=== PATIENT | female | born 1980 | race American Indian/Alaskan Native ===

== ENCOUNTER 2017-07-18 19:44 | Emergency (ER) | payer OTHER, BC ==
[2017-07-18 19:45] VITALS: BMI 31.0
[2017-07-18 19:53] VITALS: BP 122/70; PULSE 70; RESP 16; TEMP 99; O2SAT 100
[2017-07-18] MEDS ORDERED: Naproxen 550 mg Tab PO STA (20:29)
--- NOTE | 2017-07-18 21:05 | ED PDOC ---
Arrival/HPI <Mario Alberto Soto - Last Filed: 07/18/17 22:52> - General Historian: Patient <Trina Ohara PA-C - Last Filed: 07/19/17 00:06> - General Chief Complaint: Trauma Time Seen by Provider: 07/18/17 20:13 - History of Present Illness Narrative History of Present Illness (Text): 07/18/17 21:02 Patient with past medical history of migraine headaches, reports 2 week history of constant throbbing headache to the left side of her forehead. Patient states that she has been taking her migraine medication with no improvement of her headache and therefore assumes that she may be having the headache from a possible head injury, however she is unsure. When patient was asked if she sustained any injury or trauma to her head, she is unsure and thinks it is a possibility as she has no other explanation of why she has the headache. Otherwise: (-) loss of consciousness, (-) nausea, (-) vomiting, (-) severe headache, (-) other injury, (-) neck pain, (-) subjective neurologic deficit, (- ) anticoagulants, (-) fever, (-) URI symptoms. Has no history of prior significant head injury. PMD Brock (Trina Ohara PA-C) Past Medical History - Provider Review Nursing Documentation Reviewed: Yes - Infectious Disease Hx of Infectious Diseases: None - Tetanus Immunization Tetanus Immunization: Unknown - Reproductive Menopause: No - Past Medical History Past Medical History: No Previous - Cardiac Hx Cardiac Disorders: Yes Hx Heart Murmur: Yes ("BENIGN HEART MURMUR") - Pulmonary Hx Respiratory Disorders: Yes Hx Emphysema: Yes - Neurological Hx Neurological Disorder: Yes Hx Migraine: Yes - HEENT Hx HEENT Disorder: No - Renal Hx Renal Disorder: No - Endocrine/Metabolic Hx Endocrine Disorders: No - Hematological/Oncological Hx Blood Disorders: No - Integumentary Hx Dermatological Disorder: No - Musculoskeletal/Rheumatological Hx Musculoskeletal Disorders: Yes Other/Comment: HX: RIGHT FOOT BUNION - Gastrointestinal Hx Gastrointestinal Disorders: No - Genitourinary/Gynecological Hx Genitourinary Disorders: Yes Other/Comment: HX: DERMOID CYST LEFT OVARY - Psychiatric Hx Psychophysiologic Disorder: No - Past Surgical History Past Surgical History: No Previous - Surgical History Hx Orthopedic Surgery: Yes Other/Comment: HX: BUNIONECTOMY RIGHT FOOT. HX:ORAL [id number] ANESTHESIA - Anesthesia Hx Anesthesia: Yes Hx Anesthesia Reactions: No Hx Malignant Hyperthermia: No - Suicidal Assessment Feels Threatened In Home Enviroment: No <Trina Ohara PA-C - Last Filed: 07/19/17 00:06> Family/Social History - Physician Review Nursing Documentation Reviewed: Yes Family/Social History: Unknown Family HX (as the patient is adopted) Smoking Status: Never Smoked Hx Alcohol Use: No Hx Substance Use Treatment: No <Trina Ohara PA-C - Last Filed: 07/19/17 00:06> Allergies/Home Meds <Mario Alberto Soto - Last Filed: 07/18/17 22:52> <Trina Ohara PA-C - Last Filed: 07/19/17 00:06> Allergies/Adverse Reactions: Allergies shellfish derived Adverse Reaction (Verified 10/27/16 14:52) SHORTNESS OF BREATH Home Medications: Home Meds Medication Instructions Recorded Confirmed Albuterol HFA [Ventolin HFA 90 2 puff IH PRN PRN 04/13/17 07/18/17 mcg/actuation (8 g)] Atorvastatin [Lipitor] 10 mg PO HS 04/13/17 07/18/17 Diclofenac Potassium [Cambia] 1 packet PO PRN PRN 04/13/17 07/18/17 Ergocalciferol (Vitamin D2) 50,000 unit PO QWK 04/13/17 07/18/17 [Vitamin D2] Magnesium Oxide [Magnesium] 400 mg PO TID 04/13/17 07/18/17 Sumatriptan Succinate [Onzetra 11 mg NS PRN PRN 04/13/17 07/18/17 Xsail] Topiramate (Brand) [Topamax 50 mg PO DAILY 04/13/17 07/18/17 (Brand)] Albuterol HFA [Ventolin HFA 90 0.09 mg IH PRN PRN 07/18/17 07/18/17 mcg/actuation (8 g)] Review of Systems - Review of Systems Constitutional: Normal. absent: Fatigue, Weight Change, Fevers ENT: Normal. absent: Hearing Changes, Sore Throat, Rhinorrhea, Sinus Congestion Respiratory: Normal. absent: SOB, Cough, Sputum Cardiovascular: Normal. absent: Chest Pain, Palpitations, Edema Musculoskeletal: Normal. absent: Arthralgias, Back Pain, Neck Pain Skin: Normal. absent: Rash, Pruritis, Skin Lesions Neurological: Normal, Headache. absent: Dizziness, Focal Weakness <Trnia Ohara PA-C - Last Filed: 07/19/17 00:06> Physical Exam <Mario Alberto Soto - Last Filed: 07/18/17 22:52> <Trina Ohara PA-C - Last Filed: 07/19/17 00:06> - Physical Exam Narrative Physical Exam (Text): 07/18/17 21:06 GENERAL APPEARANCE: Patient is awake, alert, oriented x 3, in no acute distress. SKIN: Warm, dry; (-) cyanosis; (-) rash. HEAD: (-) scalp swelling or tenderness, (-) temporal artery tenderness. EYES: (-) conjunctival pallor, (-) scleral icterus. ENMT: (-) sinus tenderness; mucous membranes moist. NECK: (-) tenderness, (-) stiffness, (-) meningismus, (-) lymphadenopathy. CHEST AND RESPIRATORY: (-) rales, (-) rhonchi, (-) wheezes; breath sounds equal bilaterally. HEART AND CARDIOVASCULAR: (-) irregularity; (-) murmur, (-) gallop. ABDOMEN AND GI: Soft; (-) tenderness. EXTREMITIES: (-) deformity. NEURO AND PSYCH: Mental status as above. education managers: Pupils equal and reactive; EOMI; (-) facial asymmetry; tongue and uvula midline. Strength and DTRs symmetric. Babinski normal bilaterally. (Trina Ohara PA-C) Vital Signs Temp Pulse Resp BP Pulse Ox 07/18/17 19:49 99 F 70 16 122/70 100 Medical Decision Making <Mario Alberto Soto - Last Filed: 07/18/17 22:52> <Trina Ohara PA-C - Last Filed: 07/19/17 00:06> ED Course and Treatment: 07/18/17 21:06 36 yo F w/ past medical history of migraine headaches, reports 2 week history of constant throbbing headache to the left side of her forehead. [place]: [place] [facility] [place] - Tylenol po / reglan po 07/18/17 22:18 [facility] [place] (-[place] CT head : No acute intracranial abnormality On reevaluation, the patient is resting comfortably in bed in no acute distress , reports improvement of her headache. Patient remains awake, alert, oriented 3. Repeat neuro exam shows no acute focal findings. Advised to follow up with primary care physician and her neurologist in 1-2 days without fail. Advised to take medication as prescribed. Return to the emergency room at any time for any new or worsening symptoms. Patient states she fully agrees with and understands discharge instructions. States that she agrees with the plan and disposition. Verbalized and repeated discharge instructions and plan. I have given the patient opportunity to ask any additional questions. (Lev JEAN,Trina Govea) - RAD Interpretation Narrative RAD Interpretations (Text): 07/18/17 22:18 CT HEAD : FINDINGS: Brain: Ventricles are normal in size and configuration. There is no midline shift. There are no intraaxial or extra-axial mass lesions or areas of hemorrhage. There are no abnormal fluid collections. Arango-white differentiation is maintained. Ventricles: See above. Bones: Cranial vault is intact. Soft tissues: unremarkable Sinuses: There is no acute sinusitis. Ears and mastoids: Middle ears and mastoids are unremarkable Orbits: Orbital contents are unremarkable. IMPRESSION: No acute intracranial abnormality Dictated and Authenticated by: Marysol Ibrahim MD 07/18/2017 10:09 PM Eastern Time ([place] & [place]) (Lev JEAN,Trina Govea) Radiology Orders: 07/18/17 20:28 HEAD W/O CONTRAST [CT] Stat - Medication Orders Current Medication Orders: Discontinued Medications Acetaminophen (Tylenol 325mg Tab) 975 mg PO STAT STA Stop: 07/18/17 20:34 Last Admin: 07/18/17 21:03 Dose: 975 mg Metoclopramide HCl (Reglan) 10 mg PO STAT STA Stop: 07/18/17 20:30 Last Admin: 07/18/17 21:03 Dose: 10 mg - PA / SECOND VP HR ASSESSMENT / Resident Statement KARLO has reviewed & agrees with the documentation as recorded. KARLO has examined the patient and agrees with the treatment plan. <BrittanyMario Alberto - Last Filed: 07/18/17 22:52> - PA / SECOND VP HR ASSESSMENT / Resident Statement / has reviewed & agrees with the documentation as recorded. <Trina Ohara PA-C - Last Filed: 07/19/17 00:06> Disposition/Present on Arrival <BrittanyMario Alberto - Last Filed: 07/18/17 22:52> - Present on Arrival Any Indicators Present on Arrival: No History of DVT/PE: No History of Uncontrolled Diabetes: No Urinary Catheter: No History of Decub. Ulcer: No History Surgical Site Infection Following: None - Disposition Have Diagnosis and Disposition been Completed?: Yes Disposition Time: 22:15 Patient Plan: Discharge <Trina Ohara PA-C - Last Filed: 07/19/17 00:06> - Disposition Diagnosis: Headache Disposition: HOME/ ROUTINE Patient Problems: Current Active Problems Problem Status Onset Headache Acute Condition: IMPROVED Discharge Instructions (ExitCare): Acute Headache (ED) Print Language: SPANISH Additional Instructions: Thank you for letting us take care of you today. You were treated for headache. The emergency medical care you received today was directed at your acute symptoms. If you were prescribed any medication, please fill it and take as directed. It may take several days for your symptoms to resolve. Return to the Emergency Department if your symptoms worsen, do not improve, or if you have any other problems. Please contact your doctor in 2 days for re-evaluation and follow up. Bring any paperwork you were given at discharge with you along with any medications you are taking to your follow up visit. Our treatment cannot replace ongoing medical care by a primary care provider (PCP) outside of the emergency department. Thank you for allowing the [facility] team to be part of your care today. If you had a CT scan: A Radiologist will review the ED reading if any change in treatment is needed we will contact you. Prescriptions: Metoclopramide HCl [Reglan] 10 mg PO QID PRN #20 tablet PRN Reason: Headache Forms: [employer] (Czech)
--- NOTE | 2017-07-18 22:10 | CT ---
EXAM: CT Head Without Intravenous Contrast EXAM DATE/TIME: 07/18/2017 8:28 PM CLINICAL HISTORY: 36 years old, female; Pain and injury or trauma; Fall; Initial encounter; Sprain or strain; Headache TECHNIQUE: Axial computed tomography images of the head/brain without intravenous contrast. All CT scans at this facility use one or more dose reduction techniques, viz.: automated exposure control; ma/kV adjustment per patient size (including targeted exams where dose is matched to indication; i.e. head); or iterative reconstruction technique. COMPARISON: MR - BRAIN WITHOUT CONTRAST 10/01/2015 5:08:33 PM FINDINGS: Brain: Ventricles are normal in size and configuration. There is no midline shift. There are no intra-axial or extra-axial mass lesions or areas of hemorrhage. There are no abnormal fluid collections. Arango-white differentiation is maintained. Ventricles: See above. Bones: Cranial vault is intact. Soft tissues: unremarkable Sinuses: There is no acute sinusitis. Ears and mastoids: Middle ears and mastoids are unremarkable Orbits: Orbital contents are unremarkable. IMPRESSION: No acute intracranial abnormality
== END 2017-07-18 22:00 | disposition home or self-care (01) ==
LOC: ED 19:44
DX: R51 Headache (principal)

== ENCOUNTER 2018-01-06 17:11 | Emergency (ER) | payer OTHER, BC ==
[2018-01-06] MEDS ORDERED: Albuterol-Ipratrop 3 mg / 0.5 (3 ml) UD IH STA ×2 (17:47→18:44)
[2018-01-06 17:48] VITALS: BMI 28.1
[2018-01-06 18:37] LABS: BASO # 0.01 K/mm3 (0.0-2.0); BASO % 0.1 % (0.0-3.0); EOS % 0.6 % (1.5-5.0); GRAN # 4.19 (1.4-6.5); GRAN % 61.9 % (50.0-68.0); HEMOGLOBIN 12.8 g/dL (12.0-16.0); LYMPH # 1.9 (1.2-3.4); MEAN CELL VOLUME 96.1 fl (80.0-105.0); MEAN CORPUSCULAR HEMOGLOBIN 31.3 pg (25.0-35.0); MEAN CORPUSCULAR HGB CONC 32.6 g/dl (31.0-37.0); MEAN PLATELET VOLUME 9.5 fl (7.0-11.0); MONO # 0.6 (0.1-0.6); MONO % 9.4 % (1.0-6.0); RBC 4.09 10^6/uL (3.5-6.1); RED CELL DISTRIBUTION WIDTH 13.7 % (11.5-14.5); WHITE BLOOD COUNT 6.8 10^3/ul (4.5-11.0)
[2018-01-06 18:38] LABS: ARTERIAL BLOOD GAS HCO3 18.9 mmol/L (21-28); ARTERIAL BLOOD GAS HEMOGLOBIN 12.8 g/dL (11.7-17.4); ARTERIAL BLOOD GAS O2 CAPACITY 17.7 mL/dl (16-24); ARTERIAL BLOOD GAS O2 CONTENT 17.6 ML/dl (15-23); ARTERIAL BLOOD GAS O2 SAT 99.6 % (95-98); ARTERIAL BLOOD GAS PCO2 26 mm/Hg (35-45); ARTERIAL BLOOD GAS PH 7.47 (7.35-7.45); ARTERIAL BLOOD GAS TCO2 19.7 mmol.L (22-28)
[2018-01-06 18:42] LABS: URINE BILIRUBIN NEGATIVE (NEGATIVE); URINE BLOOD NEGATIVE (NEGATIVE); URINE GLUCOSE (UA) NEGATIVE (NEGATIVE); URINE LEUKOCYTE ESTERASE NEGATIVE Leu/uL (NEGATIVE); URINE NITRATE NEGATIVE (NEGATIVE); URINE PROTEIN NEGATIVE mg/dL (<30 mg/dL); URINE UROBILINOGEN 0.2 E.U./dL (<1 E.U./dL)
--- NOTE | 2018-01-06 18:42 | ED PDOC ---
Arrival/HPI - General Chief Complaint: Shortness Of Breath Time Seen by Provider: 01/06/18 17:23 Historian: Patient - History of Present Illness Narrative History of Present Illness (Text): 01/06/18 18:38 37yo female with PMHx of Migraine headache and Emphysema referred to ED by Dr. Gutiérrez for SOB and chest pressure x 5days. Also complain of cough and nausea. Notes previous history of these same symptoms, but it usually resolve within a day. 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 states her symptoms started after singing. Notes that she used her inhalers without relieve. Saw her PMD today and was referred to the ED. She denies fever, chills, sore throat, dizziness, diaphoresis, recent travel, recent surgery, calf pain, OCP use. Past Medical History - Provider Review Nursing Documentation Reviewed: Yes - Infectious Disease Hx of Infectious Diseases: None - Tetanus Immunization Tetanus Immunization: Unknown - Past Medical History Past Medical History: No Previous - Cardiac Hx Cardiac Disorders: Yes Hx Heart Murmur: Yes ("BENIGN HEART MURMUR") - Pulmonary Hx Respiratory Disorders: Yes Hx Emphysema: Yes - Neurological Hx Neurological Disorder: Yes Hx Migraine: Yes - HEENT Hx HEENT Disorder: No - Renal Hx Renal Disorder: No - Endocrine/Metabolic Hx Endocrine Disorders: No - Hematological/Oncological Hx Blood Disorders: No - Integumentary Hx Dermatological Disorder: No - Musculoskeletal/Rheumatological Hx Musculoskeletal Disorders: Yes Other/Comment: HX: RIGHT FOOT BUNION - Gastrointestinal Hx Gastrointestinal Disorders: No - Genitourinary/Gynecological Hx Genitourinary Disorders: Yes Other/Comment: HX: DERMOID CYST LEFT OVARY - Psychiatric Hx Psychophysiologic Disorder: No Hx Substance Use: No - Past Surgical History Past Surgical History: No Previous - Surgical History Hx Orthopedic Surgery: Yes Other/Comment: HX: BUNIONECTOMY RIGHT FOOT. HX:ORAL [id number] ANESTHESIA - Anesthesia Hx Anesthesia: Yes Hx Anesthesia Reactions: No Hx Malignant Hyperthermia: No - Suicidal Assessment Feels Threatened In Home Enviroment: No Family/Social History - Physician Review Nursing Documentation Reviewed: Yes Family/Social History: Unknown Family HX Smoking Status: Never Smoked Hx Alcohol Use: No Hx Substance Use: No Hx Substance Use Treatment: No Allergies/Home Meds Allergies/Adverse Reactions: Allergies shellfish derived Adverse Reaction (Verified 01/06/18 17:25) SHORTNESS OF BREATH Home Medications: Home Meds Medication Instructions Recorded Confirmed Albuterol HFA [Ventolin HFA 90 2 puff IH PRN PRN 04/13/17 07/18/17 mcg/actuation (8 g)] Atorvastatin [Lipitor] 10 mg PO HS 04/13/17 07/18/17 Diclofenac Potassium [Cambia] 1 packet PO PRN PRN 04/13/17 07/18/17 Ergocalciferol (Vitamin D2) 50,000 unit PO QWK 04/13/17 07/18/17 [Vitamin D2] Magnesium Oxide [Magnesium] 400 mg PO TID 04/13/17 07/18/17 Sumatriptan Succinate [Onzetra 11 mg NS PRN PRN 04/13/17 07/18/17 Xsail] Topiramate (Brand) [Topamax 50 mg PO DAILY 04/13/17 07/18/17 (Brand)] Albuterol HFA [Ventolin HFA 90 0.09 mg IH PRN PRN 07/18/17 07/18/17 mcg/actuation (8 g)] Review of Systems - Physician Review All systems were reviewed & negative as marked: Yes - Review of Systems Constitutional: Normal Eyes: Normal ENT: Normal Respiratory: SOB, Cough. absent: Sputum, Wheezing Cardiovascular: Chest Pain. absent: Palpitations, Edema, Calf Pain Gastrointestinal: Normal Genitourinary Female: Normal Musculoskeletal: Normal Skin: Normal Neurological: Normal Endocrine: Normal Hemo/Lymphatic: Normal Psychiatric: Normal Physical Exam Vital Signs Reviewed: Yes Vital Signs Temp Pulse Resp BP Pulse Ox 01/06/18 20:20 78 18 128/70 100 01/06/18 19:01 98.5 F 79 16 122/69 100 01/06/18 18:00 17 99 01/06/18 17:25 98.4 F 71 18 141/94 H 100 Temperature: Afebrile Blood Pressure: Normal Pulse: Regular Respiratory Rate: Normal Appearance: Positive for: Well-Appearing, Non-Toxic, Comfortable Pain Distress: None Mental Status: Positive for: Alert and Oriented X 3 - Systems Exam Head: Present: Atraumatic, Normocephalic Pupils: Present: PERRL Extroacular Muscles: Present: EOMI Conjunctiva: Present: Normal Mouth: Present: Moist Mucous Membranes Neck: Present: Normal Range of Motion Respiratory/Chest: Present: Clear to Auscultation, Good Air Exchange. No: Respiratory Distress, Accessory Muscle Use, Wheezes, Decreased Breath Sounds, Rales, Retracting, Rhonchi Cardiovascular: Present: Regular Rate and Rhythm, Normal S1, S2. No: Murmurs Abdomen: Present: Normal Bowel Sounds. No: Tenderness, Distention, Peritoneal Signs Back: Present: Normal Inspection Upper Extremity: Present: Normal Inspection. No: Cyanosis, Edema Lower Extremity: Present: Normal Inspection. No: Edema Neurological: Present: GCS=15, CN II-XII Intact, Speech Normal Skin: Present: Warm, Dry, Normal Color. No: Rashes Psychiatric: Present: Alert, Oriented x 3, Normal Insight, Normal Concentration Medical Decision Making ED Course and Treatment: 01/06/18 20:01 Pt in ED for stated. She was hemodynamically stable in ED. Her lung was CTA b/ l. she was talking in full sentence and ambulatory without distress. She states she used her inhaler prior to seeing her PMD Lab was unremarkable CXR NAD On re evaluation pt states she feels fine. Her lung remain CTA b/l 01/06/18 20:28 case was MILTON Gutiérrez. He recommends that pt be DC home and advised to f/u with his office next week. Result and plan was DW the pt and she expressed understanding of the instructions. - Lab Interpretations Lab Results: 01/06/18 17:50 01/06/18 17:50 Lab Results 01/06/18 18:35: pCO2 26 L, pO2 104.0 H, HCO3 18.9 L, ABG pH 7.47 H, ABG Total CO2 19.7 L, ABG O2 Saturation 99.6 H, ABG O2 Content 17.6, ABG Base Excess -3.3 L, ABG Hemoglobin 12.8, ABG Carboxyhemoglobin 1.3, POC ABG HHb (Measured) 0.4, ABG Methemoglobin 1.0, ABG O2 Capacity 17.7, Hgb O2 Saturation 97.3, FiO2 21.0 01/06/18 18:29: Magnesium 2.1 01/06/18 17:50: Sodium 140, Potassium 3.6, Chloride 109 H, Carbon Dioxide 22, Anion Gap 13, BUN 13, Creatinine 0.9, Est GFR ( Amer) > 60, Est GFR (Non- Af Amer) > 60, Random Glucose 95, Calcium 9.4, Total Bilirubin 0.4, AST 18, ALT 23, Alkaline Phosphatase 55, Lactate Dehydrogenase 445, Total Creatine Kinase 124, Troponin I < 0.01 D, NT-Pro-B Natriuret Pep 11.5, Total Protein 7.3, Albumin 3.9, Globulin 3.4, Albumin/Globulin Ratio 1.2 01/06/18 17:50: Urine Color Yellow, Urine Appearance Clear, Urine pH 6.0, Ur Specific Cornelia 1.025, Urine Protein Negative, Urine Glucose (UA) Negative, Urine Ketones Negative, Urine Blood Negative, Urine Nitrate Negative, Urine Bilirubin Negative, Urine Urobilinogen 0.2, Ur Leukocyte Esterase Negative 01/06/18 17:50: PT 11.9, INR 1.04, APTT 35.4, D-Dimer, Quantitative < 200 01/06/18 17:50: WBC 6.8 D, RBC 4.09, Hgb 12.8, Hct 39.3, MCV 96.1, MCH 31.3, MCHC 32.6, RDW 13.7, Plt Count 195, MPV 9.5, Gran % 61.9, Lymph % (Auto) 28.0, [place] % (Auto) 9.4 H, Eos % (Auto) 0.6 L, Baso % (Auto) 0.1, Gran # 4.19, Lymph # (Auto) 1.9, [place] # (Auto) 0.6, Eos # (Auto) 0.0, Baso # (Auto) 0.01 01/06/18 17:39: Urine Opiates Screen Negative, Urine Methadone Screen Negative, Ur Barbiturates Screen Negative, Ur Phencyclidine Scrn Negative, Ur Amphetamines Screen Negative, U Benzodiazepines Scrn Negative, U Oth Cocaine Metabols Negative, U Cannabinoids Screen Negative - RAD Interpretation Radiology Orders: 01/06/18 17:47 CHEST PORTABLE [RAD] Stat - Medication Orders Current Medication Orders: Discontinued Medications Albuterol/Ipratropium (Duoneb 3 Mg/0.5 Mg (3 Ml) Ud) 3 ml IH STAT STA Stop: 01/06/18 17:48 Last Admin: 01/06/18 18:11 Dose: 3 ml Albuterol/Ipratropium (Duoneb 3 Mg/0.5 Mg (3 Ml) Ud) 3 ml IH STAT STA Stop: 01/06/18 18:45 Last Admin: 01/06/18 18:58 Dose: 3 ml Methylprednisolone (Solu-Medrol) 125 mg IVP STAT STA Stop: 01/06/18 18:00 Last Admin: 01/06/18 18:11 Dose: 125 mg IVP Administration Document 01/06/18 18:11 [facility] [place] (Rec: 01/06/18 18:11 [facility] [id number]) Charges for Administration # of IVP Administrations 1 Potassium Chloride (K-Dur 20 Meq Er Tab) 20 meq PO STAT STA Stop: 01/06/18 20:08 Last Admin: 01/06/18 20:16 Dose: 20 meq Disposition/Present on Arrival - Present on Arrival Any Indicators Present on Arrival: No History of DVT/PE: No History of Uncontrolled Diabetes: No Urinary Catheter: No History of Decub. Ulcer: No History Surgical Site Infection Following: None - Disposition Have Diagnosis and Disposition been Completed?: Yes Diagnosis: Emphysema of lung Disposition: HOME/ ROUTINE Disposition Time: 21:00 Patient Plan: Discharge Patient Problems: Current Active Problems Problem Status Onset Emphysema of lung Acute Condition: STABLE Discharge Instructions (ExitCare): COPD Including Emphysema (DC) Additional Instructions: Follow up with your doctor next week Return to ED for any new or worsening symptoms Referrals: Eugene Gutiérrez MD [Primary Care Provider] - Follow up with primary Forms: [employer] (Ugandan)
[2018-01-06 18:43] LABS: URINE APPEARANCE CLEAR (CLEAR); URINE COLOR YELLOW (YELLOW)
[2018-01-06 18:48] LABS: ALB/GLOB RATIO 1.2 (1.1-1.8); ALBUMIN 3.9 g/dL (3.0-4.8); ALT/SGPT 23 U/L (7-56); AST/SGOT 18 U/L (14-36); BLOOD UREA NITROGEN 13 mg/dL (7-21); CALCIUM 9.4 mg/dL (8.4-10.5); GFR AFRICAN-AMERICAN > 60; GFR NON-AFRICAN AMERICAN > 60
[2018-01-06 18:54] LABS: INR 1.04 (0.93-1.08); PARTIAL THROMBOPLASTIN TIME 35.4 Seconds (25.1-36.5); PROTHROMBIN TIME 11.9 SECONDS (9.4-12.5)
[2018-01-06 18:55] LABS: D DIMER < 200 ng/mL (0-243)
[2018-01-06 18:59] LABS: B-TYPE NATRIURETIC PEPTIDE 11.5 pg/mL (0-450); TROPONIN I < 0.01 ng/mL
[2018-01-06 19:02] VITALS: TEMP 98.5; O2SAT 100
[2018-01-06 20:02] LABS: BARBITURATES, UR NEGATIVE (NEGATIVE); BENZODIAZEPINES, UR NEGATIVE (NEGATIVE); OPIATES, UR NEGATIVE (NEGATIVE); PHENCYCLIDINE, UR NEGATIVE (NEGATIVE)
[2018-01-06] MEDS ORDERED: Potassium Chloride 20 mEq ER Tab PO STA (20:07)
[2018-01-06 21:39] VITALS: RESP 16
[2018-01-06 21:40] VITALS: BP 123/70; PULSE 70
--- NOTE | 2018-01-07 08:06 | RAD ---
HISTORY: Shortness of breath COMPARISON: 03/30/2017. FINDINGS: LUNGS: The lungs are well inflated and clear. PLEURA: No significant pleural effusion identified, no pneumothorax apparent. CARDIOVASCULAR: Normal. OSSEOUS STRUCTURES: No significant abnormalities. VISUALIZED UPPER ABDOMEN: Normal. OTHER FINDINGS: None. IMPRESSION: No active pulmonary disease.
--- NOTE | 2018-01-07 10:11 | CARD ---
APPROVED REPORT EKG Measurement Heart [id number] <Conclusion> Normal sinus rhythm rSr Pattern V1.
== END 2018-01-06 21:39 | disposition home or self-care (01) ==
LOC: ED 17:11
DX: J43.9 Emphysema, unspecified (principal)
CPT/HCPCS: 71045; 80053; 80324; 80345; 80346; 80349; 80353; 80358; 80361; 81003; 82550; 82803; 83615; 83735; 83880; 83992; 84484; 85025; 85378; 85610; 85730; 87040; 93005; 96374; 99284; J2930

== ENCOUNTER 2019-01-22 16:45 | Emergency (ER) | payer OTHER, BC ==
[2019-01-22 16:45] VITALS: BMI 31.0
[2019-01-22] MEDS ORDERED: DiphenhydrAMINE 12.5 mg/5 ml LIQ UD (5 ml) PO STA (17:18)
[2019-01-22 17:58] LABS: URINE BILIRUBIN NEGATIVE (NEGATIVE); URINE BLOOD TRACE-INTACT (NEGATIVE); URINE GLUCOSE (UA) NEGATIVE (NEGATIVE); URINE LEUKOCYTE ESTERASE NEGATIVE Leu/uL (NEGATIVE); URINE PROTEIN NEGATIVE mg/dL (<30 mg/dL); URINE UROBILINOGEN 0.2 E.U./dL (<1 E.U./dL)
[2019-01-22 18:02] LABS: URINE APPEARANCE CLEAR (CLEAR); URINE COLOR YELLOW (YELLOW)
--- NOTE | 2019-01-22 18:15 | ED PDOC ---
Arrival/HPI - General Historian: Patient - History of Present Illness Narrative History of Present Illness (Text): 01/22/19 18:03 38 y/o female with PMH of migraines presents to the ED c/o intermittent lightheadedness and headache s/p injury 3 days ago. Pt stood up under a metal shelf and hit her head. No LOC. Headache is isolated to the top of her head, described as dull. Has been taking her migraine medication for the pain without relief, cannot remember the name of the medication. Denies fever, chills, vision changes, vertigo, nausea, vomiting, abdominal pain, numbness, weakness, paresthesias, urinary symptoms, back pain, neck pain, photophobia, phonophobia, chest pain, SOB, or any other associated symptoms. <Snow Bruce - Last Filed: 01/22/19 19:15> <Chris Senior - Last Filed: 01/23/19 07:16> - General Chief Complaint: Headache Time Seen by Provider: 01/22/19 16:46 Past Medical History - Infectious Disease Hx of Infectious Diseases: None - Tetanus Immunization Tetanus Immunization: Unknown - Reproductive Menopause: No - Past Medical History Past Medical History: No Previous - Cardiac Hx Cardiac Disorders: Yes Hx Heart Murmur: Yes ("BENIGN HEART MURMUR") - Pulmonary Hx Respiratory Disorders: Yes Hx Emphysema: Yes - Neurological Hx Neurological Disorder: Yes Hx Migraine: Yes - HEENT Hx HEENT Disorder: No - Renal Hx Renal Disorder: No - Endocrine/Metabolic Hx Endocrine Disorders: No - Hematological/Oncological Hx Blood Disorders: No - Integumentary Hx Dermatological Disorder: No - Musculoskeletal/Rheumatological Hx Musculoskeletal Disorders: Yes Other/Comment: HX: RIGHT FOOT BUNION - Gastrointestinal Hx Gastrointestinal Disorders: No - Genitourinary/Gynecological Hx Genitourinary Disorders: Yes Other/Comment: HX: DERMOID CYST LEFT OVARY - Psychiatric Hx Psychophysiologic Disorder: No Hx Substance Use: No - Past Surgical History Past Surgical History: No Previous - Surgical History Hx Orthopedic Surgery: Yes Other/Comment: HX: BUNIONECTOMY RIGHT FOOT. HX:ORAL [id number] ANESTHESIA - Anesthesia Hx Anesthesia: Yes Hx Anesthesia Reactions: No Hx Malignant Hyperthermia: No - Suicidal Assessment Feels Threatened In Home Enviroment: No <Snow Bruce - Last Filed: 01/22/19 19:15> Family/Social History - Physician Review Nursing Documentation Reviewed: Yes Family/Social History: No Known Family HX Smoking Status: Never Smoked Hx Alcohol Use: No Hx Substance Use: No Hx Substance Use Treatment: No <Snow Bruce - Last Filed: 01/22/19 19:15> Allergies/Home Meds <Snow Bruce - Last Filed: 01/22/19 19:15> <Chris Senior - Last Filed: 01/23/19 07:16> Allergies/Adverse Reactions: Allergies shellfish derived Adverse Reaction (Verified 01/06/18 17:25) SHORTNESS OF BREATH Home Medications: Home Meds Medication Instructions Recorded Confirmed Albuterol HFA [Ventolin HFA 90 2 puff IH PRN PRN 04/13/17 07/18/17 mcg/actuation (8 g)] Atorvastatin [Lipitor] 10 mg PO HS 04/13/17 07/18/17 Albuterol HFA [Ventolin HFA 90 0.09 mg IH PRN PRN 07/18/17 01/22/19 mcg/actuation (8 g)] Review of Systems - Review of Systems Constitutional: Normal. absent: Fatigue, Fevers Eyes: Normal. absent: Vision Changes, Photophobia, Eye Pain ENT: Normal. absent: Sore Throat, Sinus Congestion Respiratory: Normal. absent: SOB, Cough Cardiovascular: Normal. absent: Chest Pain, Palpitations Gastrointestinal: Normal. absent: Abdominal Pain, Nausea, Vomiting Genitourinary Female: Normal. absent: Dysuria, Frequency Musculoskeletal: Normal. absent: Arthralgias, Back Pain, Neck Pain Skin: Normal. absent: Rash Neurological: Headache, Dizziness. absent: Focal Weakness, Gait Changes, Speech Changes, Disequilibrium Endocrine: Normal Hemo/Lymphatic: Normal Psychiatric: Normal <Snow Bruce - Last Filed: 01/22/19 19:15> Physical Exam Vital Signs Reviewed: Yes Vital Signs Temp Pulse Resp BP Pulse Ox 01/22/19 17:00 98.8 F 60 18 147/80 99 Temperature: Afebrile Blood Pressure: Normal Pulse: Regular Respiratory Rate: Normal Appearance: Positive for: Well-Appearing, Non-Toxic, Comfortable Pain Distress: None Mental Status: Positive for: Alert and Oriented X 3 - Systems Exam Head: Present: Atraumatic, Normocephalic Pupils: Present: PERRL Extroacular Muscles: Present: EOMI Conjunctiva: Present: Normal Ears: Present: Normal, NORMAL TM, Normal Canal. No: Other (no hemotympanum) Mouth: Present: Moist Mucous Membranes Neck: Present: Normal Range of Motion. No: Meningeal Signs, MIDLINE TENDERNESS, Paraspinal Tenderness Respiratory/Chest: Present: Clear to Auscultation, Good Air Exchange. No: Respiratory Distress, Accessory Muscle Use Cardiovascular: Present: Regular Rate and Rhythm, Normal S1, S2, Peripheal Pulses Present Abdomen: Present: Normal Bowel Sounds. No: Tenderness, Distention, Peritoneal Signs, Rebound, Guarding Back: Present: Normal Inspection. No: CVA Tenderness, Midline Tenderness, Paraspinal Tenderness Upper Extremity: Present: Normal Inspection, Normal ROM, NORMAL PULSES, Neurovascularly Intact, Capillary Refill < 2s. No: Cyanosis, Edema, Temperature Abnormalties Lower Extremity: Present: Normal Inspection, NORMAL PULSES, Normal ROM, Neurovascularly Intact, Capillary Refill < 2 s. No: Edema, Temperature Abnormalties Neurological: Present: GCS=15, CN II-XII Intact, Speech Normal, Motor Func Grossly Intact, Normal Sensory Function, Normal Cerebellar Funct, Gait Normal, Memory Normal Skin: Present: Warm, Dry, Normal Color. No: Rashes Lymphatic: No: Cervical Adenopathy Psychiatric: Present: Alert, Oriented x 3, Normal Insight, Normal Concentration, Normal Affect, Normal Mood <Snow Bruce - Last Filed: 01/22/19 19:15> Vital Signs Temp Pulse Resp BP Pulse Ox 01/22/19 19:16 98.2 F 62 16 127/88 99 01/22/19 19:09 64 18 125/82 100 01/22/19 17:45 60 18 127/90 99 01/22/19 17:00 98.8 F 60 18 147/80 99 <Chris Senior - Last Filed: 01/23/19 07:16> Medical Decision Making ED Course and Treatment: Initial Plan: * Head CT * UA * POC urine preg * Reglan * Benadryl * Tylenol * Reassess and Disposition POC urine preg negative 18:59 Pt reports resolution of headache with medication. CT head negative for acute pathology UA unremarkable Diagnostic testing results and plan of care discussed with patient. Strict instructions given regarding prescription use, importance of followup, and signs/symptoms to return to ER including vision changes, numbness, weakness, paresthesias, imbalance or any other new/worsening symptoms. Pt verbalized understanding of discussion. Patient is A&Ox3, ambulating with steady gait, with vital signs stable for discharge. - Lab Interpretations Lab Results: Urine Color Yellow (YELLOW) 01/22/19 17:30 Urine Appearance Clear (CLEAR) 01/22/19 17:30 Urine pH 6.0 (4.7-8.0) 01/22/19 17:30 Ur Specific Fletcher >= 1.030 (1.005-1.035) 01/22/19 17:30 Urine Protein Negative mg/dL (<30 mg/dL) 01/22/19 17:30 Urine Glucose (UA) Negative mg/dL (NEGATIVE) 01/22/19 17:30 Urine Ketones Negative mg/dL (NEGATIVE) 01/22/19 17:30 Urine Blood Trace-intact (NEGATIVE) H 01/22/19 17:30 Urine Nitrate Negative (NEGATIVE) 01/22/19 17:30 Urine Bilirubin Negative (NEGATIVE) 01/22/19 17:30 Urine Urobilinogen 0.2 E.U./dL (<1 E.U./dL) 01/22/19 17:30 Ur Leukocyte Esterase Negative Rita/uL (NEGATIVE) 01/22/19 17:30 I have reviewed the lab results: Yes - RAD Interpretation Narrative RAD Interpretations (Text): 01/22/19 19:[address] IMPRESSION: No acute intracranial pathology Dictator: Siva Rich MD Radiology Orders: 01/22/19 17:18 HEAD W/O CONTRAST [CT] Stat - Medication Orders Current Medication Orders: Discontinued Medications Acetaminophen (Tylenol 325mg Tab) 975 mg PO STAT STA Stop: 01/22/19 17:19 Last Admin: 01/22/19 17:33 Dose: 975 mg MAR Pain/Vitals Document 01/22/19 17:33 MA (Rec: 01/22/19 17:33 [place] [facility] – [id number] Pain Reassessment Is This A Pain ReAssessment? Yes Sleep Is patient sleeping during reassessment? No Presence of Pain Presence of Pain Yes Pain Scale Used Protocol: PSCALES Pain Scale Used Numeric Location Pain Location Body Gas Main Fitter Helper Description Dull Throbbing Intensity 5 Scale Used Numeric Pain Behavior Grasping Site Rubbing Site Diphenhydramine HCl (Benadryl) 25 mg PO STAT STA Stop: 01/22/19 17:19 Last Admin: 01/22/19 17:34 Dose: 25 mg Metoclopramide HCl (Reglan) 10 mg PO STAT STA Stop: 01/22/19 17:19 Last Admin: 01/22/19 17:32 Dose: 10 mg <[email or web address] - Last Filed: 01/22/19 19:15> - Lab Interpretations Lab Results: Urine Color Yellow (YELLOW) 01/22/19 17:30 Urine Appearance Clear (CLEAR) 01/22/19 17:30 Urine pH 6.0 (4.7-8.0) 01/22/19 17:30 Ur Specific Fletcher >= 1.030 (1.005-1.035) 01/22/19 17:30 Urine Protein Negative mg/dL (<30 mg/dL) 01/22/19 17:30 Urine Glucose (UA) Negative mg/dL (NEGATIVE) 01/22/19 17:30 Urine Ketones Negative mg/dL (NEGATIVE) 01/22/19 17:30 Urine Blood Trace-intact (NEGATIVE) H 01/22/19 17:30 Urine Nitrate Negative (NEGATIVE) 01/22/19 17:30 Urine Bilirubin Negative (NEGATIVE) 01/22/19 17:30 Urine Urobilinogen 0.2 E.U./dL (<1 E.U./dL) 01/22/19 17:30 Ur Leukocyte Esterase Negative Rita/uL (NEGATIVE) 01/22/19 17:30 Urine RBC 1 - 3 /hpf (0-2) H 01/22/19 17:30 Urine WBC 0 - 2 /hpf (0-6) 01/22/19 17:30 Ur Epithelial Cells 3 - 4 /hpf (0-5) 01/22/19 17:30 - RAD Interpretation Radiology Orders: 01/22/19 17:18 HEAD W/O CONTRAST [CT] Stat - Medication Orders Current Medication Orders: Discontinued Medications Acetaminophen (Tylenol 325mg Tab) 975 mg PO STAT STA Stop: 01/22/19 17:19 Last Admin: 01/22/19 17:33 Dose: 975 mg MAR Pain/Vitals Document 01/22/19 17:33 MA (Rec: 01/22/19 17:33 MA [facility] – [id number]) Pain Reassessment Is This A Pain ReAssessment? Yes Sleep Is patient sleeping during reassessment? No Presence of Pain Presence of Pain Yes Pain Scale Used Protocol: PSCALES Pain Scale Used Numeric Location Pain Location Body Gas Main Fitter Helper Description Dull Throbbing Intensity 5 Scale Used Numeric Pain Behavior Grasping Site Rubbing Site Diphenhydramine HCl (Benadryl) 25 mg PO STAT STA Stop: 01/22/19 17:19 Last Admin: 01/22/19 17:34 Dose: 25 mg Metoclopramide HCl (Reglan) 10 mg PO STAT STA Stop: 01/22/19 17:19 Last Admin: 01/22/19 17:32 Dose: 10 mg <Chris Senior - Last Filed: 01/23/19 07:16> - PA / [employer] APPRENTICE / Resident Statement / has reviewed & agrees with the documentation as recorded. <Chris Senior - Last Filed: 01/23/19 07:16> Disposition/Present on Arrival - Present on Arrival Any Indicators Present on Arrival: No History of DVT/PE: No History of Uncontrolled Diabetes: No Urinary Catheter: No History of Decub. Ulcer: No History Surgical Site Infection Following: None - Disposition Have Diagnosis and Disposition been Completed?: Yes Disposition Time: 19:07 Patient Plan: Discharge <Snow Bruce - Last Filed: 01/22/19 19:15> <Chris Senior - Last Filed: 01/23/19 07:16> - Disposition Diagnosis: Closed head injury, Headache, Postconcussion syndrome Disposition: HOME/ ROUTINE Condition: IMPROVED Discharge Instructions (ExitCare): Postconcussion Syndrome (DC) Additional Instructions: Increase fluids Ibuprofen/tylenol for pain as needed Rest, no strenuous activity Followup with primary doctor within 2 days Return to ER with any new/worsening symptoms Referrals: Eugene Gutiérrez MD [Family Provider] - Follow up with primary Forms: [employer] [facility] (Sinhala), WORK NOTE
[2019-01-22 18:24] LABS: URINE WBC 0 - 2 /hpf (0-6)
[2019-01-22 19:17] VITALS: BP 127/88; PULSE 62; RESP 16; TEMP 98.2; O2SAT 99
--- NOTE | 2019-01-23 08:29 | CT ---
Date of service: 01/22/2019 PROCEDURE: CT HEAD WITHOUT CONTRAST. HISTORY: Headache. COMPARISON: Comparison made with prior CT scan brain 01/28/2018. TECHNIQUE: Axial computed tomography images were obtained through the head/brain without intravenous contrast. Radiation dose: Total exam DLP = 958.26 mGy-cm. This CT exam was performed using one or more of the following dose reduction techniques: Automated exposure control, adjustment of the mA and/or kV according to patient size, and/or use of iterative reconstruction technique. FINDINGS: HEMORRHAGE: No intracranial hemorrhage. BRAIN: No mass effect or edema. No atrophy or chronic microvascular ischemic changes. VENTRICLES: Unremarkable. No hydrocephalus. CALVARIUM: Unremarkable. PARANASAL SINUSES: Unremarkable as visualized. No significant inflammatory changes. MASTOID AIR CELLS: Unremarkable as visualized. No inflammatory changes. OTHER FINDINGS: None. IMPRESSION: Normal CT of the Head. No acute intracranial hemorrhage.
== END 2019-01-22 19:15 | disposition home or self-care (01) ==
LOC: ED 16:45
DX: G44.309 Post-traumatic headache, unspecified, not intractable (principal); F07.81 Postconcussional syndrome

== ENCOUNTER 2019-02-28 09:31 | Outpatient (CLI) | payer OTHER, BC | END 2019-02-28 09:32 | disposition home or self-care (01) | LOC: RAD 09:31 ==